=== PATIENT | female | born 1990 | race Caucasian/White ===

== ENCOUNTER 2020-12-08 02:59 | Inpatient (IN) ==
[2020-12-08 03:29] LABS: BILIRUBIN,URINE NEGATIVE (NEGATIVE); BLOOD/HEMOGLOBIN,URINE 3+ (NEGATIVE); GLUCOSE, URINE NEGATIVE (NEGATIVE); KETONES,URINE NEGATIVE (NEGATIVE); LEUKOCYTE ESTERASE ,URINE NEGATIVE (NEGATIVE); NITRITES,URINE NEGATIVE (NEGATIVE); PH,URINE 6.5 (5.0 - 8.0); PROTEIN,URINE 1+ (NEGATIVE); UROBILINOGEN,URINE NORMAL (NORMAL)
[2020-12-08 03:34] VITALS: BMI 27.8
[2020-12-08 03:41] LABS: APPEARANCE,URINE HAZY (CLEAR); COLOR,URINE YELLOW (YELLOW)
[2020-12-08 03:42] LABS: BACTERIA,URINE 1+ /HPF (NEGATIVE); SQUAMOUS EPITHELIAL CELL,UR MANY /HPF (NEGATIVE)
[2020-12-08] MEDS ORDERED: LR 1000 ML IV 1,000 ML IV ONE ×2 (04:25→06:53)
[2020-12-08 04:28] LABS: AMNISURE ROM TEST THERE IS A RUPTURE (NO RUPTURE)
[2020-12-08] MEDS ORDERED: PITOCIN ONE (04:32)
[2020-12-08] MEDS ORDERED: D5 1/2 NS 1L W PITOCIN 20 UNITS/L 20 UNITS/1,000 ML BAG IV ONE (04:33)
[2020-12-08] MEDS ORDERED: D5 1/2 NS 1000 ML 1,000 ML IV ONE (04:33)
[2020-12-08] MEDS ORDERED: D5LR 1L W PITOCIN 10 UNITS/L 10 UNITS/1,000 ML BAG IV ONE (04:33)
[2020-12-08] MEDS ORDERED: BETADINE SOLN ONE (04:33)
[2020-12-08] MEDS ORDERED: NS 100 ML IV 100 ML IV ONE ×2 (04:34→09:05)
[2020-12-08] MEDS ORDERED: AMPICILLIN VIAL 2 GRAM ONE (04:34)
[2020-12-08] MEDS ORDERED: D5LR 1L W PITOCIN 10 UNITS/L 10 UNITS/1,000 ML BAG IV PRN (04:56)
[2020-12-08] MEDS ORDERED: PITOCIN IVP ONE (04:56)
[2020-12-08] MEDS ORDERED: REGLAN INJ 10 MG VIAL IVP PRN (04:56)
[2020-12-08] MEDS ORDERED: PHENERGAN INJ 25 MG IM PRN ×2 (04:56→12:18)
[2020-12-08] MEDS ORDERED: STADOL INJ IVP PRN (04:58)
[2020-12-08] MEDS ORDERED: AMPICILLIN VIAL 2 GRAM 2 G in NS 100 ML IV + SPIKE MINIBAG* 100 ML IV SCH (05:00)
[2020-12-08] MEDS: D5 1/2 NS 1000 ML 1,000 ML IV SCH ×2 (05:00→14:20)
[2020-12-08 05:23] LABS: BASOPHILS # (AUTO) 0.1 X10^3/uL (0.0-0.1); BASOPHILS % (AUTO) 1.4 % (0.2-1.0); EOSINOPHILS % (AUTO) 0.5 % (0.9-2.9); HEMATOCRIT 27.2 % (36.0-47.0); HEMOGLOBIN 8.6 g/dL (12.0-16.0); LYMPHOCYTES # (AUTO) 1.5 X10^3/uL (1.3-2.9); LYMPHOCYTES % (AUTO) 18.2 % (21.0-51.0); MEAN CORPUSCULAR HEMOGLOBIN 23.2 pg (27.0-34.0); MEAN CORPUSCULAR HGB CONC 31.7 g/dL (33.0-35.0); MEAN CORPUSCULAR VOLUME 73.2 fL (80.0-100.0); MEAN PLATELET VOLUME 8.6 fL (7.4-11.0); MONOCYTES # (AUTO) 0.9 x10^3/uL (0.3-0.8); NEUTROPHILS # (AUTO) 5.6 x10^3/uL (2.2-4.8); NEUTROPHILS % (AUTO) 68.9 % (42.0-75.0); PLATELET COUNT 217 X10^3/uL (150.0-450.0); RED BLOOD COUNT 3.71 X10^6/uL (3.5-5.4); RED CELL DISTRIBUTION WIDTH 16.2 % (11.6-16.5); WHITE BLOOD COUNT 8.1 X10^3/uL (3.6-10.0)
[2020-12-08 05:33] LABS: BLOOD UREA NITROGEN 10 mg/dL (7-18); CARBON DIOXIDE 22.6 mmol/L (21-32); CHLORIDE 105 mmol/L (98-107); CREATININE 0.63 mg/dL (0.55-1.02); SODIUM 139 mmol/L (136-145); eGFR NON BLACK RACES > 60 (>60)
[2020-12-08] MEDS ORDERED: STADOL INJ ONE (05:45)
[2020-12-08 05:57] LABS: HYPOCHROMASIA 1+; MICROCYTOSIS SLIGHT; PLATELET MORPHOLOGY COMMENT NORMAL (NORMAL)
[2020-12-08] MEDS ORDERED: FENTANYL INJ 100 mcg ONE (06:57)
[2020-12-08] MEDS ORDERED: NAROPIN EPIDURAL 0.2% 100 ML ONE (06:57)
--- NOTE | 2020-12-08 06:59 | DR.OB ---
OB Quick Note - Assessment/Plan Assessment/Plan: L&D 12/08/20 at 6:40am Pitocin=6mu/min. Ampicillin S-No complaint. O-Afebrile,VSS KQN=[id number] with good LTV, +accel, no decel. CTX=q 2-3 min., strong by palpation CVX=3cm/90%/0/VTX Clear fluid noted. IUPC and FSE placed. A-IUP at 38 3/7 weeks in active labor SROM +GBS P-Cont. pitocin induction and ABX in labor Anticipate
[2020-12-08] MEDS ORDERED: AMPICILLIN VIAL 1 GRAM ONE (09:05)
[2020-12-08] MEDS: AMPICILLIN VIAL 1 GRAM IV SCH ×2 (09:05→14:20)
[2020-12-08] MEDS ORDERED: MOTRIN TAB 800 MG PO PRN (12:18)
[2020-12-08] MEDS: D5 1/2 NS 1000 ML 1,000 ML with PITOCIN 20 UNITS IV SCH ×2 (13:00)
--- NOTE | 2020-12-08 13:33 | DR.OB ---
OB Quick Note - Assessment/Plan Assessment/Plan: Delivery Note [employer] [employer] 12/08/20 at 12:01pm Patient complete and pushing. Head delivered over midline episiotomy. Nose and mouth bulb suctioned. No nuchal cord. Body delivered over episiotomy. Cord clamped x 2 and cut. Infant handed to attendants. Cord sent for gases. Placenta delivered spontaneously / intact / 3 vessel cord. No CVX tears. Midline episiotomy (second degree) repaired with 0-vicryl in usual fashion. Viable male , VTX/OA, wt=7'11" and 8/9, stable to NBN. Mother stable to RR. IBJ=248re.
[2020-12-08] MEDS ORDERED: DERMOPLAST PAIN RELIEF SPRAY TOP PRN (13:45)
[2020-12-08] MEDS ORDERED: ADACEL or BOOSTRIX TDaP VACCINE IM ONE (13:45)
[2020-12-08] MEDS ORDERED: MILK OF MAGNESIA PO PRN (13:45)
[2020-12-08] MEDS ORDERED: AMBIEN PO PRN (13:45)
[2020-12-09 04:39] LABS: HEMATOCRIT 27.8 % (36.0-47.0); HEMOGLOBIN 8.7 g/dL (12.0-16.0)
[2020-12-09] MEDS: D5 1/2 NS 1000 ML 1,000 ML with PITOCIN 20 UNITS IV SCH ×2 (05:05)
[2020-12-09] MEDS ORDERED: PRENATAL PLUS PO SCH (09:00)
[2020-12-09 13:55] VITALS: BP 106/54
[2020-12-09] MEDS ORDERED: ADACEL or BOOSTRIX TDaP VACCINE IM ONE (14:08)
== END 2020-12-09 14:45 | disposition home or self-care (01) | DRG 807 ==
LOC: ER 03:04 → LD 04:36 → MED/SURG 14:37
PROVIDERS: ADMIT Specialist; ATTEND Specialist
DX: Z20.822 Contact with and (suspected) exposure to COVID-19; O99.824 Streptococcus B carrier state complicating childbirth; Z3A.38 38 weeks gestation of pregnancy; O70.1 Second degree perineal laceration during delivery; Z23 Encounter for immunization; O99.013 Anemia complicating pregnancy, third trimester; Z37.0 Single live birth; D50.8 Other iron deficiency anemias; B95.1 Streptococcus, group B, as the cause of diseases classified elsewhere